=== PATIENT | female | born 2000 | race Caucasian/White ===

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

== ENCOUNTER 2019-04-12 19:05 | Inpatient (IN) | payer MEDICAID ==
[2019-04-12] MEDS ORDERED: MAG HYDROX/AL HYDROX/SIMETH SUSP 30 ML UDCUP PO PRN (19:38)
[2019-04-12] MEDS ORDERED: ACETAMINOPHEN 325 MG TABLET PO PRN (19:38)
[2019-04-12 19:58] LABS: ABSOLUTE EOSINOPHILS # (AUTO) 0.1 10^3/uL (0.0-0.6); ABSOLUTE LYMPHOCYTES (AUTO) 1.6 10^3/uL (0.5-4.7); ABSOLUTE MONOCYTES (AUTO) 0.7 10^3/uL (0.1-1.4); ABSOLUTE NEUT (AUTO) 8.8 10^3/uL (1.7-8.2); BASOPHILS % (AUTO) 0.1 % (0-2); EOSINOPHILS % (AUTO) 0.9 % (0-6); HEMATOCRIT 32.5 % (36.0-47.0); HEMOGLOBIN 11.1 g/dL (12.0-15.5); LYMPHOCYTES % (AUTO) 14.3 % (13-45); MEAN CORPUSCULAR HEMOGLOBIN 29.5 pg (27.0-33.4); MEAN CORPUSCULAR HGB CONC 34.2 g/dL (32.0-36.0); MEAN CORPUSCULAR VOLUME 86 fl (80-97); MONOCYTES % (AUTO) 5.9 % (3-13); PLATELET COUNT 195 10^3/uL (150-450); RED BLOOD COUNT 3.77 10^6/uL (3.72-5.28); SEGMENTED NEUTROPHILS % (AUTO) 78.8 % (42-78); TOTAL CELLS COUNTED % (AUTO) 100 %; WHITE BLOOD COUNT 11.2 10^3/uL (4.0-10.5)
[2019-04-12] MEDS ORDERED: RINGERS SOLUTION,LACTATED 300 ML IV ONE (20:00)
[2019-04-12] MEDS ORDERED: DINOPROSTONE 10 MG VAGINAL INSERT.SR PV ONE (20:00)
[2019-04-12 20:03] LABS: APPEARANCE,URINE SLIGHTLY-CLOUDY; BILIRUBIN,URINE NEGATIVE (NEGATIVE); COLOR,URINE YELLOW; GLUCOSE, URINE NEGATIVE (NEGATIVE); KETONES,URINE NEGATIVE (NEGATIVE); LEUKOCYTE ESTERASE,URINE NEGATIVE (NEGATIVE); NITRITE,URINE NEGATIVE (NEGATIVE); PROTEIN,URINE 30 mg/dL (NEGATIVE); URINE SPECIFIC GRAVITY 1.018
[2019-04-12 20:19] LABS: ALBUMIN 3.5 g/dL (3.5-5.0); ALKALINE PHOSPHATASE 88 U/L (38-126); ANION GAP 8 (5-19); ASPARTATE AMINO TRANSFERASE 19 U/L (14-36); BILIRUBIN,DIRECT 0.1 mg/dL (0.0-0.4); BILIRUBIN,TOTAL 0.3 mg/dL (0.2-1.3); BLOOD UREA NITROGEN 10 mg/dL (7-20); CALCIUM 9.9 mg/dL (8.4-10.2); CARBON DIOXIDE 22 mmol/L (22-30); CHLORIDE 103 mmol/L (98-107); GLUCOSE 92 mg/dL (75-110); TOTAL PROTEIN 6.3 g/dL (6.3-8.2); URIC ACID 4.6 mg/dL (2.5-6.2)
[2019-04-12 20:27] LABS: URINE AMPHETAMINES SCREEN NEGATIVE; URINE BARBITURATES SCREEN NEGATIVE; URINE BENZODIAZEPINES SCREEN NEGATIVE; URINE COCAINE SCREEN NEGATIVE; URINE MARIJUANA (THC) SCREEN NEGATIVE; URINE METHADONE SCREEN NEGATIVE; URINE PHENCYCLIDINE SCREEN NEGATIVE
[2019-04-12] MEDS ORDERED: DINOPROSTONE 10 MG VAGINAL INSERT.SR ONE (21:02)
[2019-04-12] MEDS ORDERED: ZOLPIDEM TARTRATE 5 MG TABLET ONE (22:59)
[2019-04-12] MEDS: RINGERS SOLUTION,LACTATED 1,000 ML IV PRN (23:00)
[2019-04-12] MEDS: ZOLPIDEM TARTRATE 5 MG TABLET PO PRN (23:00)
[2019-04-13] MEDS ORDERED: OXYTOCIN/NORMAL SALINE 20 UNIT/1,000 ML RTUINJ ONE (12:06)
[2019-04-13] MEDS ORDERED: LIDOCAINE 1% INJ-PF (10 MG/ML) 30 ML SDV ONE (12:06)
[2019-04-13] MEDS ORDERED: OXYTOCIN 10 UNIT/ML VIAL ONE (12:06)
[2019-04-13] MEDS ORDERED: MISOPROSTOL 0.2 MG TABLET ONE (12:06)
[2019-04-13] MEDS ORDERED: LIDOCAINE 2% JELLY 5 ML TUBE ONE (12:07)
[2019-04-13] MEDS ORDERED: OXYTOCIN/NORMAL SALINE 20 UNIT/1,000 ML RTUINJ IV PRN (13:04)
[2019-04-13] MEDS: OXYTOCIN/NORMAL SALINE 20 UNIT/1,000 ML RTUINJ IV PRN (13:05)
[2019-04-13] MEDS ORDERED: LIDOCAINE 2% JELLY 5 ML TUBE TOP ONE (13:06)
--- NOTE | 2019-04-13 13:11 | Admission Physical ---
Datetime Report Generated by CPN: 04/13/2019 13:10 CURRENT ADMISSION Chief Complaint: Scheduled Induction of Labor Chief Complaint Other: had cervidil placed last night Indication for Induction: PreEclampsia Indication for Induction- Other: Pre E 24*urine >300 Admit Impression : Term, Intrauterine Admit Plan: Admit to Unit; Initiate Labor Induction Protocol ALLERGIES Medication Allergies: Yes Medication Allergies: Penicillins (04/13/2019) OBSTETRICAL HISTORY EDC: 04/28/2019 00:00 : 2 Para: 0 Term: 0 : 0 SAB: 0 IAB: 1 Ectopic: 0 Livin Cesareans: 0 VBACs: 0 Multiple Births: 0 Gestational Diabetes: No Rh Sensitization: No Incompetent Cervix: No LENA: No Infertility: No ART Treatment: No Uterine Anomaly: No IUGR: No Hx Previous C/S: No Macrosomia: No Hx Loss/Stillborn: No PIH: No Hx : No Placenta Previa/Abruption: No Depression/PP Depression: Yes PTL/PROM: No Post Hemorrhage: No Obstetrical History Comments: G1- EA2017 D_C G2- current SEE RECORDS Alcohol: No Marijuana : No Cocaine: No Other Illicit Drugs: No Cigarettes: Former Smoker. 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 Surgery: No Heart Disease: No Hosp/Surgery: Yes Autoimmune Disorder: No Anesthetic Complications: No Kidney Disease: No Abnormal Pap Smear: No Neuro/Epilepsy: No Psychiatric Disorders: Yes Other Medical Diseases: No Hepatitis/Liver Disease: No Significant Family History: No Varicosities/Phlebitis: No Trauma/Violence : No Thyroid Dysfunction: No Medical History Comments: pre-e 24h urine 334, pt was being seen in 2016 for anxiety and depression-stopped going b/c she was feeling better, D_C - 2017 INFECTIOUS HISTORY Gonorrhea: No Genital Herpes: No Chlamydia: No Tuberculosis: No Syphilis: No Hepatitis: No HIV/AIDS Exposure: No Rash or Viral Illness: No HPV: No Infectious History Comments: pt treated for trich 10/29/18 PHYSICAL EXAM General: Normal HEENT: Deferred Neurologic: Normal Thyroid: Deferred Heart: Normal Lungs: Normal Breast: Deferred Back: Deferred Abdomen: Normal Genitourinary Exam: Normal Extremities: Normal DTRs: Deferred Pelvic Type: Adequate VAGINAL EXAM Dilatation: 1 Effacement: 50 Station: -2 FETUS A EGA: 37.6 Monitoring: External US FHR- Baseline: 140 Variability: Moderate 6-25bpm Accelerations: 15X15 Decelerations: None Admit Comment: GBS neg PLANS FOR LABOR AND DELIVERY Labor and Delivery: None Pain Management: Epidural Feeding Preference: Breast Benefit of Breast Feed Discussed: Yes Circumcision: N/A INFORMED CONSENT Assignment: Samantha Martins MD Signature: with User ID: [email or web address] : with User ID: [email or web address]
[2019-04-13] MEDS ORDERED: MISOPROSTOL 0.1 MG TABLET PV ONE (17:11)
[2019-04-13] MEDS ORDERED: MISOPROSTOL 0.1 MG TABLET PO ONE (17:12)
[2019-04-13] MEDS ORDERED: MISOPROSTOL 0.1 MG TABLET ONE ×2 (17:16→21:46)
[2019-04-13] MEDS ORDERED: ZOLPIDEM TARTRATE 5 MG TABLET ONE (22:56)
[2019-04-13] MEDS: ZOLPIDEM TARTRATE 5 MG TABLET PO PRN (22:59)
[2019-04-14] MEDS ORDERED: MISOPROSTOL 0.1 MG TABLET ONE (01:53)
[2019-04-14 08:02] LABS: ABSOLUTE EOSINOPHILS # (AUTO) 0.1 10^3/uL (0.0-0.6); ABSOLUTE LYMPHOCYTES (AUTO) 1.2 10^3/uL (0.5-4.7); ABSOLUTE MONOCYTES (AUTO) 0.7 10^3/uL (0.1-1.4); ABSOLUTE NEUT (AUTO) 11.1 10^3/uL (1.7-8.2); BASOPHILS % (AUTO) 0.3 % (0-2); EOSINOPHILS % (AUTO) 0.4 % (0-6); HEMOGLOBIN 12.2 g/dL (12.0-15.5); LYMPHOCYTES % (AUTO) 9.1 % (13-45); MEAN CORPUSCULAR HEMOGLOBIN 29.9 pg (27.0-33.4); MEAN CORPUSCULAR HGB CONC 34.9 g/dL (32.0-36.0); MEAN CORPUSCULAR VOLUME 86 fl (80-97); MONOCYTES % (AUTO) 5.4 % (3-13); PLATELET COUNT 187 10^3/uL (150-450); RED BLOOD COUNT 4.09 10^6/uL (3.72-5.28); RED CELL DISTRIBUTION WIDTH 13.3 % (11.5-14.0); SEGMENTED NEUTROPHILS % (AUTO) 84.8 % (42-78); TOTAL CELLS COUNTED % (AUTO) 100 %; WHITE BLOOD COUNT 13.1 10^3/uL (4.0-10.5)
[2019-04-14 08:19] LABS: ALBUMIN 3.5 g/dL (3.5-5.0); ALKALINE PHOSPHATASE 94 U/L (38-126); ANION GAP 10 (5-19); ASPARTATE AMINO TRANSFERASE 19 U/L (14-36); BILIRUBIN,TOTAL 0.6 mg/dL (0.2-1.3); BLOOD UREA NITROGEN 3 mg/dL (7-20); CALCIUM 9.8 mg/dL (8.4-10.2); CARBON DIOXIDE 23 mmol/L (22-30); CHLORIDE 103 mmol/L (98-107); GLUCOSE 81 mg/dL (75-110); POTASSIUM 4.4 mmol/L (3.6-5.0); TOTAL PROTEIN 6.7 g/dL (6.3-8.2); URIC ACID 4.9 mg/dL (2.5-6.2)
[2019-04-14] MEDS: OXYTOCIN/NORMAL SALINE 20 UNIT/1,000 ML RTUINJ IV PRN (08:30)
[2019-04-14] MEDS: RINGERS SOLUTION,LACTATED 1,000 ML IV PRN ×2 (08:30→12:41)
[2019-04-14] MEDS ORDERED: PHENYLEPHRINE HCL INJ/PF 10 MG/1 ML SDV ONE (15:18)
[2019-04-14] MEDS ORDERED: FENTANYL/BUPIVACAINE/NS/PF 300 MCG/150 ML RTUINJ EPI ONE (15:19)
[2019-04-14] MEDS ORDERED: EPHEDRINE SULFATE INJ 50 MG/1 ML AMPULE ONE (15:19)
[2019-04-14] MEDS ORDERED: FENTANYL CITRATE INJ/PF 100 MCG/2 ML AMPUL ONE (15:19)
[2019-04-14] MEDS ORDERED: BUPIVACAINE HCL 0.25 % INJ/PF (2.5 MG/1 ML) 30 ML VIAL ONE (15:20)
[2019-04-14] MEDS ORDERED: OXYTOCIN/NORMAL SALINE 20 UNIT/1,000 ML RTUINJ ONE (22:36)
[2019-04-14] MEDS ORDERED: ONDANSETRON HCL INJ/PF 4 MG/2 ML SDV ONE (23:34)
[2019-04-14] MEDS ORDERED: ONDANSETRON HCL INJ/PF 4 MG/2 ML SDV IV ONE (23:59)
[2019-04-15] MEDS ORDERED: PROMETHAZINE HCL 25 MG TABLET PO PRN
[2019-04-15] MEDS ORDERED: DIPH/PERTUSS(ACELL)/TETANUS VAC/PF 0.5 ML SYR (>=10YO) IM PRN
[2019-04-15] MEDS ORDERED: PSEUDOEPHEDRINE HCL 30 MG TABLET PO PRN
[2019-04-15] MEDS ORDERED: DIPHENHYDRAMINE HCL 25 MG CAPSULE PO PRN
[2019-04-15] MEDS ORDERED: DIBUCAINE 1% OINTMENT 56 GM TP PRN
[2019-04-15] MEDS ORDERED: PROMETHAZINE HCL INJ 25 MG/1 ML VIAL IV PRN
[2019-04-15] MEDS ORDERED: MEASLES,MUMPS&RUBELLA VACC/PF 0.5 ML VIAL SUBCUT PRN
[2019-04-15] MEDS ORDERED: OXYTOCIN/NORMAL SALINE 20 UNIT/1,000 ML RTUINJ IV PRN
[2019-04-15] MEDS ORDERED: BENZOCAINE/MENTHOL AEROSOL SPRAY 56 ML TOP PRN
[2019-04-15] MEDS ORDERED: ACETAMINOPHEN WITH CODEINE #3 TABLET PO PRN ×2
[2019-04-15] MEDS ORDERED: NA PHOS,M-B/NA PHOS,DI-BA (ADULT) 133 ML ENEMA PR PRN
[2019-04-15] MEDS ORDERED: PROMETHAZINE HCL 25 MG SUPP.RECT PR PRN
[2019-04-15] MEDS ORDERED: GLYCERIN/WITCH HAZEL LEAF 1 EACH MED..WIPE TP PRN
[2019-04-15] MEDS ORDERED: ACETAMINOPHEN 650 MG SUPP.RECT PR PRN
[2019-04-15] MEDS ORDERED: MAGNESIUM HYDROXIDE SUSP 30 ML UDCUP PO PRN
[2019-04-15] MEDS ORDERED: ACETAMINOPHEN 325 MG TABLET ONE (00:12)
[2019-04-15] MEDS ORDERED: ACETAMINOPHEN 325 MG TABLET PO ONE (01:00)
--- NOTE | 2019-04-15 01:51 | Delivery Summary ---
Del Sum A-C Datetime Report Generated by CPN: 04/15/2019 01:51 DELIVERY PERSONNEL DELIVERY PERSONNEL: [id number] Delivery Doctor:: Molly Owens MD Labor and Delivery Nurse:: Flora Guthrie RNsolar energy sales specialist Nurse:: Patti Zuñiga, RNC MATERNAL INFORMATION Delivery Anesthesia: Epidural Medications After Delivery: Pitocin Drip 20 Units/1000ml NSS; Cytotec 1000mcg Per Rectum/Vagina Estimated Blood Loss (ml): 300 Delivery QBL: 300 Maternal Complications: Maternal Fever Provider Comments: Called to patients room complete and + 3 station. Delivered with maternal pushing with only small 1 cm right vaginal wall laceration at level of hymen. After delivery of the head, the shoulders and the rest of the body followed easily. Cord clamped after 30 second delay as infant was vigorous. Uterine atony initially resolved with bimanual massage but returned. Cytotec 1000mcg given MO x1. Fundus massaged and remained firm. LABOR SUMMARY EDC: 04/28/2019 00:00 No. Babies in Womb: 1 Attempted: No Labor Anesthesia: Epidural LABOR INFORMATION Reason for Induction: Pre-Eclampsia Onset of Labor: 04/14/2019 20:55 Complete Dilatation: 04/14/2019 22:25 Cervical Ripening Agents: Cervidil; Damian Balloon; Cytotec @ Oxytocin: Augmentation Group B Beta Strep: negative Antibiotics # of Doses: 0 Steroids Given: None Reason Steroids Not Administered: Not Applicable MEMBRANES Membranes Rupture Method: Artificial Rupture of Membranes: 04/14/2019 14:37 Length of Rupture (hr): 8.30 Amniotic Fluid Color: Clear Amniotic Fluid Amount: Moderate Amniotic Fluid Odor: Normal STAGES OF LABOR Stage 1 hr: 1 Stage 1 min: 30 Stage 2 hr: 0 Stage 2 min: 30 Stage 3 hr: 0 Stage 3 min: 3 Total Time in Labor hr: 2 Total Time in Labor min: 3 VAGINAL DELIVERY Episiotomy: None Laceration #1: Vaginal Laceration Extension #1: First Degree Laceration Repair: Yes Laceration Repair Note: Small first degree laceration at right side wall of vagina through hymen. Repaired with 3-0 vicryl on SH . Approx 1 cm length. Hemostatic following repair. Sponge Count Correct: Yes Sharps Count Correct: Yes CSECTION DELIVERY Primary Indication: N/A Secondary Indication: N/A CSection Incidence: N/A Labor: N/A Elective: N/A CSection Incision: N/A BABY A INFORMATION Infant Delivery Date/Time: 04/14/2019 22:55 Method of Delivery: Vaginal Born in Route : No : N/A Forceps: N/A Vacuum Extraction: N/A Shoulder Dystocia : No PRESENTATION/POSITION BABY A Presentation: Cephalic Cephalic Presentation: Vertex Vertex Position: Right Occipital Anterior Breech Presentation: N/A PLACENTA INFORMATION BABY A Placenta Delivery Time : 04/14/2019 22:58 Placenta Method of Delivery: Spontaneous Placenta Status: Delivered SCORES BABY A Heart Rate 1 min: >100 bpm Resp Effort 1 min: Good Cry Reflex Irritability 1 min: Cough or Sneeze or Pulls Away Muscle Tone 1 min: Active Motion Color 1 min: Body [place], Extremities Blue Resuscitation Effort 1 min: Tactile Stimulation SCORE 1 MIN: 9 Heart Rate 5 min: >100 bpm Resp Effort 5 min: Good Cry Reflex Irritability 5 min: Cough or Sneeze or Pulls Away Muscle Tone 5 min: Active Motion Color 5 min: Body [place], Extremities Blue SCORE 5 MIN: 9 INFANT INFORMATION BABY A Gestational Age at Delivery: 37.5 Gestational Status: Early Term- 37- 38.6 Weeks Infant Outcome : Liveborn Infant Condition : Stable Sex: Female IDENTIFICATION BABY A Infant Verification Date/Time: 04/14/2019 23:31 ID Band Number: [id number] Mother's Name Verified: Yes RN Verifying Infant: D Bellavance RN/K [place] RN WEIGHT/LENGTH BABY A Birthweight (gm): 3212 Weight (lb): 7 Weight (oz): 1 Infant Length (in): 19.75 Infant Length (cm): 50.17 CORD INFORMATION BABY A No. Cord Vessels: 3 Nuchal Cord : N/A Cord Blood Taken: Yes-For Storage (Mom's Blood type +) Suction: None ASSESSMENT BABY A Infant Complications: None Physical Findings at Delivery: Within Normal Limits Infant Respirations: Appears Normal Skin to Skin: Yes Skin to Skin Time (min): 60 Transferred To: [facility] BABY B INFORMATION : N/A SIGNATURES Signature: with User ID: [email or web address] : with User ID: [email or web address] : I was personally available for consultation and serving as supervising physician for the MLP.
--- NOTE | 2019-04-15 01:56 | Warning Signs in Babies ---
VOD Warning Signs Datetime Report Generated by [facility]: 04/15/2019 01:56 VOD#608 -Warning Signs in Babies: Viewed with Parent(s)/Family (04/12/2019 17:05:Flora Guthrie RN)
[2019-04-15] MEDS ORDERED: IBUPROFEN 800 MG TABLET ONE (05:47)
[2019-04-15] MEDS: IBUPROFEN 800 MG TABLET PO SCH ×3 (05:52→22:01)
--- NOTE | 2019-04-15 08:46 | PDOC PROGRESS REPORT ---
Subjective-OB Progress Note for:: 04/15/19 - PP Day #1, pt is up out of bed, just took a shower, doing well, no complaints, , B+ Physical Exam (OB) Vital Signs: Intake & Output 04/14/19 04/15/19 04/16/19 06:59 06:59 06:59 Intake Total 1000 640 Balance 1000 640 Weight 107.955 kg - General General Appearance: Appears well, Alert In distress: None - Lochia Lochia Amount: Small 10-25 ml Lochia Color: Rubra/Red - Respiratory Respiratory Status: No respiratory distress - Abdominal Inspection: Normal, Gravid female Distension: No distension - Genitourinary Genitourinary Note: voiding - Extremities Upper extremity: Normal inspection Lower extremities: Normal inspection - Neurological Cognition: Normal Orientation: AAOx4 - Psychological Associated symptoms: Normal affect, Normal mood - Skin Skin Temperature: Warm Skin Moisture: Dry Objective-Diagnostic Laboratory: 04/14/19 07:33 04/14/19 07:33 Assessment and Plan(PN) - Assessment and Plan (1) (normal spontaneous vaginal delivery) Is this a current diagnosis for this admission?: Yes - Time Spent with Patient Time with patient: Less than 15 minutes Medications reviewed and adjusted accordingly: Yes - Disposition Anticipated Discharge: Home Within: within 24 hours
[2019-04-15] MEDS: SENNOSIDES/DOCUSATE 8.6-50 MG 1 EACH TABLET PO SCH (09:21)
[2019-04-15] MEDS: FERROUS SULFATE 325 MG TABLET PO SCH ×2 (09:21→17:40)
[2019-04-15] MEDS: PRENATAL VITAMIN W DHA CAPSULE PO SCH (09:21)
[2019-04-15] MEDS: DOCUSATE SODIUM 100 MG CAPSULE PO SCH ×2 (09:21→17:40)
[2019-04-15] MEDS: FAMOTIDINE 20 MG TABLET PO SCH ×2 (10:27→22:01)
[2019-04-15 11:26] LABS: HEMATOCRIT 27.8 % (36.0-47.0); MEAN CORPUSCULAR HEMOGLOBIN 29.9 pg (27.0-33.4); MEAN CORPUSCULAR HGB CONC 34.8 g/dL (32.0-36.0); MEAN CORPUSCULAR VOLUME 86 fl (80-97); PLATELET COUNT 145 10^3/uL (150-450); RED BLOOD COUNT 3.23 10^6/uL (3.72-5.28); RED CELL DISTRIBUTION WIDTH 13.1 % (11.5-14.0); WHITE BLOOD COUNT 14.4 10^3/uL (4.0-10.5)
[2019-04-15 11:27] LABS: HEMOGLOBIN 9.7 g/dL (12.0-15.5)
[2019-04-16] MEDS: IBUPROFEN 800 MG TABLET PO SCH ×2 (05:34→13:27)
[2019-04-16] MEDS ORDERED: INFLUENZA QUAD (6MOS+) 2019-20 VAC 0.5 ML SYR IM ONE (08:00)
[2019-04-16] MEDS: FAMOTIDINE 20 MG TABLET PO SCH (10:33)
[2019-04-16] MEDS: FERROUS SULFATE 325 MG TABLET PO SCH (10:33)
[2019-04-16] MEDS: PRENATAL VITAMIN W DHA CAPSULE PO SCH (10:33)
[2019-04-16] MEDS: DOCUSATE SODIUM 100 MG CAPSULE PO SCH (10:34)
[2019-04-16] MEDS: SENNOSIDES/DOCUSATE 8.6-50 MG 1 EACH TABLET PO SCH (10:34)
--- NOTE | 2019-04-16 11:33 | PDOC PROGRESS REPORT ---
Subjective-OB Progress Note for:: 04/16/19 Subjective: Ready for discharge. Physical Exam (OB) Vital Signs: Temp Pulse Resp BP Pulse Ox 97.8 F 58 L 16 137/82 H 100 04/16/19 07:26 04/16/19 07:26 04/16/19 07:26 04/16/19 07:26 04/16/19 07:26 Intake & Output 04/15/19 04/16/19 04/17/19 06:59 06:59 06:59 Intake Total 640 1940 Balance 640 1940 - PIH/Pre-Eclampsia DTR's: 2 + Clonus: Negative Headache: Absent Epigastric Pain: No Visual Changes: No - Lochia Lochia Amount: Scant < 10 ml Lochia Color: Rubra/Red - Abdomen Description: Tender, Soft Hernia Present: No Bowel Sounds: Normoactive Flatus Presence: Present Stool: Yes Fundal Description: Firm, Midline Fundal Height: u/u - u/2 Objective-Diagnostic Laboratory: 04/15/19 10:40 04/14/19 07:33 Assessment and Plan(PN) - Time Spent with Patient Medications reviewed and adjusted accordingly: Yes - Disposition Anticipated Discharge: Home
--- NOTE | 2019-04-16 11:39 | PDOC DISCHARGE SUMMARY ---
Impression - Admit/DC Date/PCP Admission Date/Primary Care Provider: 04/12/19 19:05 KEVEN GALVEZ MD Discharge Date: 04/16/19 - Discharge Diagnosis (1) Acute blood loss anemia Is this a current diagnosis for this admission?: Yes (2) History of depression Is this a current diagnosis for this admission?: Yes (3) (normal spontaneous vaginal delivery) Is this a current diagnosis for this admission?: Yes (4) Is this a current diagnosis for this admission?: Yes - Additional Information Resuscitation Status: Full Code Discharge Diet: Regular Discharge Activity: Activity As Tolerated, Balance Activity w/Rest, Pelvic Rest, Slowly Increase Activity, No tub bath Referrals: KEVEN GALVEZ MD [Primary Care Provider] - YORDAN RODRIGUEZ MD [ACTIVE STAFF] - Prescriptions: Ferrous Sulfate [Feosol 325 mg Tablet] 325 mg PO BID #60 tablet Home Medications: Vits96/Iron Fum/Folic [ Tablet] 1 each PO DAILY 04/13/19 Ferrous Sulfate [Feosol 325 mg Tablet] 325 mg PO BID #60 tablet 04/16/19 HPI Gestational Age: 37.5 wks Reason(s) for Admission: Induction of Labor, PIH Procedures: Ultrasound Intrapartum Procedure(s): Spontaneous Vaginal Delivery Complication(s): Laceration-Vaginal Laceration-Degree: 1st Results Laboratory Results: WBC 14.4 10^3/uL (4.0-10.5) H 04/15/19 10:40 RBC 3.23 10^6/uL (3.72-5.28) L 04/15/19 10:40 Hgb 9.7 g/dL (12.0-15.5) L D 04/15/19 10:40 Hct 27.8 % (36.0-47.0) L 04/15/19 10:40 MCV 86 fl (80-97) 04/15/19 10:40 MCH 29.9 pg (27.0-33.4) 04/15/19 10:40 MCHC 34.8 g/dL (32.0-36.0) 04/15/19 10:40 RDW 13.1 % (11.5-14.0) 04/15/19 10:40 Plt Count 145 10^3/uL (150-450) L 04/15/19 10:40 Lymph % (Auto) 9.1 % (13-45) L 04/14/19 07:33 [place] % (Auto) 5.4 % (3-13) 04/14/19 07:33 Eos % (Auto) 0.4 % (0-6) 04/14/19 07:33 Baso % (Auto) 0.3 % (0-2) 04/14/19 07:33 Absolute Neuts (auto) 11.1 10^3/uL (1.7-8.2) H 04/14/19 07:33 Absolute Lymphs (auto) 1.2 10^3/uL (0.5-4.7) 04/14/19 07:33 Absolute Monos (auto) 0.7 10^3/uL (0.1-1.4) 04/14/19 07:33 Absolute Eos (auto) 0.1 10^3/uL (0.0-0.6) 04/14/19 07:33 Absolute Basos (auto) 0.0 10^3/uL (0.0-0.2) 04/14/19 07:33 Seg Neutrophils % 84.8 % (42-78) H 04/14/19 07:33 Sodium 135.6 mmol/L (137-145) L 04/14/19 07:33 Potassium 4.4 mmol/L (3.6-5.0) 04/14/19 07:33 Chloride 103 mmol/L (98-107) 04/14/19 07:33 Carbon Dioxide 23 mmol/L (22-30) 04/14/19 07:33 Anion Gap 10 (5-19) 04/14/19 07:33 BUN 3 mg/dL (7-20) L 04/14/19 07:33 Creatinine 0.48 mg/dL (0.52-1.25) L 04/14/19 07:33 Est GFR ( Amer) > 60 (>60) 04/14/19 07:33 Est GFR (MDRD) Non-Af > 60 (>60) 04/14/19 07:33 Glucose 81 mg/dL (75-110) 04/14/19 07:33 Uric Acid 4.9 mg/dL (2.5-6.2) 04/14/19 07:33 Calcium 9.8 mg/dL (8.4-10.2) 04/14/19 07:33 Total Bilirubin 0.6 mg/dL (0.2-1.3) 04/14/19 07:33 Direct Bilirubin 0.0 mg/dL (0.0-0.4) 04/14/19 07:33 Neonat Total Bilirubin Not Reportable 04/14/19 07:33 Neonat Direct Bilirubin Not Reportable 04/14/19 07:33 Neonat Indirect Bili Not Reportable 04/14/19 07:33 AST 19 U/L (14-36) 04/14/19 07:33 ALT 11 U/L (<35) 04/14/19 07:33 Alkaline Phosphatase 94 U/L (38-126) 04/14/19 07:33 Lactate Dehydrogenase 179 U/L (120-246) 04/14/19 07:33 Total Protein 6.7 g/dL (6.3-8.2) 04/14/19 07:33 Albumin 3.5 g/dL (3.5-5.0) 04/14/19 07:33 Urine Color YELLOW 04/12/19 19:30 Urine Appearance SLIGHTLY-CLOUDY 04/12/19 19:30 Urine pH 6.0 (5.0-9.0) 04/12/19 19:30 Ur Specific [place] 1.018 04/12/19 19:30 Urine Protein 30 mg/dL (NEGATIVE) H 04/12/19 19:30 Urine Glucose (UA) NEGATIVE mg/dL (NEGATIVE) 04/12/19 19:30 Urine Ketones NEGATIVE mg/dL (NEGATIVE) 04/12/19 19:30 Urine Blood NEGATIVE (NEGATIVE) 04/12/19 19:30 Urine Nitrite NEGATIVE (NEGATIVE) 04/12/19 19:30 Urine Bilirubin NEGATIVE (NEGATIVE) 04/12/19 19:30 Urine Urobilinogen 2.0 mg/dL (<2.0) H 04/12/19 19:30 Ur Leukocyte Esterase NEGATIVE (NEGATIVE) 04/12/19 19:30 Urine Ascorbic Acid NEGATIVE (NEGATIVE) 04/12/19 19:30 Urine Opiates Screen NEGATIVE 04/12/19 19:30 Urine Methadone Screen NEGATIVE 04/12/19 19:30 Ur Barbiturates Screen NEGATIVE 04/12/19 19:30 Ur Phencyclidine Scrn NEGATIVE 04/12/19 19:30 Ur Amphetamines Screen NEGATIVE 04/12/19 19:30 U Benzodiazepines Scrn NEGATIVE 04/12/19 19:30 Urine Cocaine Screen NEGATIVE 04/12/19 19:30 U Marijuana (THC) Screen NEGATIVE 04/12/19 19:30 RPR NONREACTIVE (NONREACTIVE) 04/12/19 19:48 Blood Type B POSITIVE 04/12/19 19:48 Antibody Screen NEGATIVE 04/12/19 19:48 Plan Plan of Treatment: Follow up at [facility] 1 wk for b/p check.
[2019-04-16 12:15] VITALS: BP 139/81
== END 2019-04-16 13:30 | disposition home or self-care (01) | DRG 806 ==
LOC: LR 19:05 → 2S 04-15 08:55
PROVIDERS: ADMIT Obstetrics & Gynecology Gynecology; ATTEND Obstetrics & Gynecology Gynecology
PROC: 10E0XZZ Delivery of Products of Conception, External Approach (ICD-10-PCS; principal; 2019-04-14)
PROC: 0HQ9XZZ Repair Perineum Skin, External Approach (ICD-10-PCS; 2019-04-14)
DX: O14.94 Unspecified pre-eclampsia, complicating childbirth (principal); O75.2 Pyrexia during labor, not elsewhere classified; Z37.0 Single live birth; O62.2 Other uterine inertia; O70.0 First degree perineal laceration during delivery; Z3A.37 37 weeks gestation of pregnancy
CPT/HCPCS: 36415; 80053; 80307; 81005; 83615; 84550; 85025; 85027; 86592; 86850; 86900; 86901; 90715; C1758; J2370; J2405; J2590; J3010; J3490

== ENCOUNTER 2019-04-19 12:10 | Inpatient (IN) | payer MEDICAID ==
--- NOTE | 2019-04-19 12:20 | ER Document Report ---
ED Medical Screen (RME) - General Chief Complaint: High Blood Pressure Stated Complaint: HIGH BLOOD PRESSURE Time Seen by Provider: 04/19/19 12:14 Primary Care Provider: KEVEN GALVEZ MD [Primary Care Provider] - Follow up as needed Mode of Arrival: Ambulatory Information source: Patient Notes: Patient presents 4 days status post induction due to preeclampsia. Patient states that her headache started yesterday and worsened today. Patient is hypertensive in triage at this time. Patient did have an epidural with her delivery. I have greeted and performed a rapid initial assessment of this patient. A comprehensive ED assessment and evaluation of the patient, analysis of test results and completion of the medical decision making process will be conducted by additional ED providers. TRAVEL OUTSIDE OF THE [place] IN LAST 30 DAYS: No - Related Data Allergies/Adverse Reactions: Penicillins Allergy (Verified 04/19/19 12:14) Past Medical History - Social History Chew tobacco use (# tins/day): No Frequency of alcohol use: None Drug Abuse: None Renal/ Medical History: Denies: Hx Peritoneal Dialysis Physical Exam - Vital signs Vitals: Temp Pulse Resp BP Pulse Ox 97.6 F 68 18 166/98 H 98 04/19/19 12:17 04/19/19 12:17 04/19/19 12:17 04/19/19 12:17 04/19/19 12:17 - Neurological Cognition: Normal Welch Coma Scale Eye Opening: Spontaneous Welch Coma Scale Verbal: Oriented Briana Coma Scale Motor: Obeys Commands Welch Coma Scale Total: 15 Course - Vital Signs Vital signs: Temp Pulse Resp BP Pulse Ox 97.6 F 68 18 166/98 H 98 04/19/19 12:17 04/19/19 12:17 04/19/19 12:17 04/19/19 12:17 04/19/19 12:17 Doctor's Discharge - Discharge Referrals: KEVEN GALVEZ MD [Primary Care Provider] - Follow up as needed
[2019-04-19] MEDS ORDERED: ACETAMINOPHEN 325 MG TABLET PO ONE (12:27)
[2019-04-19] MEDS ORDERED: MAGNESIUM SULFATE PF/INJ 40 MEQ/10 ML SDV IV ONE (12:34)
[2019-04-19] MEDS ORDERED: ACETAMINOPHEN 325 MG TABLET PO PRN (12:47)
[2019-04-19] MEDS ORDERED: ZOLPIDEM TARTRATE 5 MG TABLET PO PRN (12:47)
[2019-04-19 12:48] LABS: ABSOLUTE BASOPHILS # (AUTO) 0.1 10^3/uL (0.0-0.2); ABSOLUTE EOSINOPHILS # (AUTO) 0.4 10^3/uL (0.0-0.6); ABSOLUTE LYMPHOCYTES (AUTO) 1.5 10^3/uL (0.5-4.7); ABSOLUTE MONOCYTES (AUTO) 0.5 10^3/uL (0.1-1.4); BASOPHILS % (AUTO) 0.8 % (0-2); EOSINOPHILS % (AUTO) 4.6 % (0-6); HEMATOCRIT 32.8 % (36.0-47.0); HEMOGLOBIN 11.3 g/dL (12.0-15.5); LYMPHOCYTES % (AUTO) 17.9 % (13-45); MEAN CORPUSCULAR HEMOGLOBIN 29.6 pg (27.0-33.4); MEAN CORPUSCULAR HGB CONC 34.5 g/dL (32.0-36.0); MEAN CORPUSCULAR VOLUME 86 fl (80-97); MONOCYTES % (AUTO) 5.7 % (3-13); PLATELET COUNT 292 10^3/uL (150-450); RED BLOOD COUNT 3.81 10^6/uL (3.72-5.28); RED CELL DISTRIBUTION WIDTH 13.2 % (11.5-14.0); TOTAL CELLS COUNTED % (AUTO) 100 %; WHITE BLOOD COUNT 8.4 10^3/uL (4.0-10.5)
[2019-04-19 12:52] LABS: INTERNATIONAL RATION (INR) 0.91; PROTHROMBIN TIME 12.2 SEC (11.4-15.4)
[2019-04-19 12:53] LABS: FIBRINOGEN 557 mg/dL (209-497); PARTIAL THROMBOPLASTIN TIME 31.4 SEC (23.5-35.8)
[2019-04-19 12:55] LABS: D-DIMER 1.91 ug/mL (0.00-0.50)
[2019-04-19] MEDS ORDERED: MAGNESIUM SULFATE/D5W 1 GM/100 ML RTUPB IV SCH (13:00)
[2019-04-19 13:03] LABS: ALBUMIN 3.8 g/dL (3.5-5.0); ALKALINE PHOSPHATASE 87 U/L (38-126); ANION GAP 10 (5-19); ASPARTATE AMINO TRANSFERASE 24 U/L (14-36); BILIRUBIN,DIRECT 0.2 mg/dL (0.0-0.4); BILIRUBIN,TOTAL 0.3 mg/dL (0.2-1.3); BLOOD UREA NITROGEN 7 mg/dL (7-20); CALCIUM 9.8 mg/dL (8.4-10.2); CARBON DIOXIDE 25 mmol/L (22-30); CHLORIDE 102 mmol/L (98-107); GLUCOSE 84 mg/dL (75-110); TOTAL PROTEIN 6.9 g/dL (6.3-8.2)
--- NOTE | 2019-04-19 13:05 | ER Document Report ---
ED General - General Chief Complaint: High Blood Pressure Stated Complaint: HIGH BLOOD PRESSURE Time Seen by Provider: 04/19/19 12:14 Primary Care Provider: KEVEN GALVEZ MD [Primary Care Provider] - Follow up as needed Mode of Arrival: Ambulatory Notes: 18-year-old female who was induced for vaginal delivery approximately 4 days ago due to preeclampsia. Patient states that she was feeling better until her headache returned yesterday and she started feeling worse yesterday and is even worse today. States that the headache is at the back of her head and radiates around to the left side of her face, causes some blurry vision and is a pounding throbbing type of pain. Patient also admits that she had an epidural, headache does not change with change in position. Patient had worsening swelling towards the end of her , states that it improved yesterday but she has not looked today. Notes that she had a fever but has not had one since being discharged from the hospital. Was not discharged from the hospital on any medications. Patient is breast-feeding. TRAVEL OUTSIDE OF THE [place] IN LAST 30 DAYS: No - Related Data Allergies/Adverse Reactions: Penicillins Allergy (Verified 04/19/19 12:14) Past Medical History - General Information source: Patient - Social History Smoking Status: Never Smoker Chew tobacco use (# tins/day): No Frequency of alcohol use: None Drug Abuse: None Family History: Reviewed & Not Pertinent Patient has suicidal ideation: No Patient has homicidal ideation: No Renal/ Medical History: Denies: Hx Peritoneal Dialysis Review of Systems - Review of Systems Constitutional: See HPI EENT: See HPI, Blurred vision Cardiovascular: See HPI, Edema Musculoskeletal: See HPI, Leg swelling Neurological/Psychological: See HPI -: Yes All other systems reviewed and negative Physical Exam - Vital signs Vitals: Temp Pulse Resp BP Pulse Ox 97.6 F 68 18 166/98 H 98 04/19/19 12:17 04/19/19 12:17 04/19/19 12:17 04/19/19 12:17 04/19/19 12:17 Interpretation: Hypertensive - Notes Notes: GENERAL: Laying in bed, eyes covered with a piece of fabric, appears photophobic, moderately uncomfortable HEAD: Normocephalic, atraumatic EYES: Pupils equal, round and reactive to light, extraocular movements intact. Normal red reflex ENT: Oral mucosa moist, tongue midline. NECK: Full range of motion, supple, trachea midline. LUNGS: Clear to auscultation bilaterally, no wheezes, rales or rhonchi, no respiratory distress. HEART: Regular rate and rhythm, no murmurs, gallops, rubs. ABDOMEN: Soft, nontender, bowel sounds present in all 4 quadrants. EXTREMITIES: Moves all 4 extremities spontaneously, 1+ pitting edema at the ankle, radial and dorsalis pedis pulses 2/4 bilaterally. No cyanosis. NEUROLOGICAL: Alert and oriented x3, normal speech, cranial nerves II through XII grossly intact, no facial droop, biceps and patellar DTRs 3+ bilaterally- slight clonus, nonsustained. PSYCH: Normal mood, normal affect. SKIN: Warm, Dry, normal turgor, no rashes or lesions noted. Course - Re-evaluation Re-evalutation: 04/19/19 13:47 Preeclampsia labs ordered, I did initially order magnesium for this patient however I then discussed the case with Dr. Aleena Hernandez who stated that they typically start treatment with other medications to control headache and blood pressure before starting magnesium. Dr. Hernandez has graciously agreed to accept the patient to for further work-up and management of this patient's headache and further investigate the possibility of preeclampsia. - Vital Signs Vital signs: Temp Pulse Resp BP Pulse Ox 97.6 F 68 18 166/98 H 98 04/19/19 12:17 04/19/19 12:17 04/19/19 12:17 04/19/19 12:17 04/19/19 12:17 - Laboratory Result Diagrams: 04/19/19 12:30 04/19/19 12:30 Laboratory results interpreted by me: 04/19/19 04/19/19 12:30 12:30 Hgb 11.3 L Hct 32.8 L Fibrinogen 557 H D-Dimer 1.91 H Discharge - Discharge Clinical Impression: headache, hypertension Condition: Good Disposition: ADMITTED INPATIENT Admitting Provider: [facility] Unit Admitted: Post Referrals: KEVEN GALVEZ MD [Primary Care Provider] - Follow up as needed
[2019-04-19] MEDS: RINGERS SOLUTION,LACTATED 1,000 ML IV PRN (13:27)
[2019-04-19] MEDS ORDERED: BUTALB/ACETAMINOPHEN/CAFFEINE 1 TAB EACH PO ONE ×2 (14:28→22:22)
[2019-04-19] MEDS ORDERED: HYDRALAZINE HCL INJ/PF 20 MG/1 ML SDV IV ONE (14:34)
[2019-04-19] MEDS ORDERED: MAGNESIUM SULFATE 4 GM/100 ML RTUPB IV ONE (14:45)
[2019-04-19] MEDS ORDERED: BUTALB/ACETAMINOPHEN/CAFFEINE 1 TAB EACH ONE ×2 (15:31→22:24)
[2019-04-19] MEDS: MAGNESIUM SULFATE 20 GM/500 ML RTUINJ IV PRN (15:37)
[2019-04-20] MEDS ORDERED: MAGNESIUM SULFATE 20 GM/500 ML RTUINJ IV ONE (02:14)
[2019-04-20] MEDS: MAGNESIUM SULFATE 20 GM/500 ML RTUINJ IV PRN (02:28)
[2019-04-20] MEDS: RINGERS SOLUTION,LACTATED 1,000 ML IV PRN (02:28)
[2019-04-20] MEDS ORDERED: INFLUENZA QUAD (6MOS+) 2019-20 VAC 0.5 ML SYR IM ONE (08:00)
--- NOTE | 2019-04-20 08:49 | Admission Physical ---
Datetime Report Generated by CPN: 04/20/2019 08:49 CURRENT ADMISSION Chief Complaint: Other Chief Complaint: Scheduled Induction of Labor Chief Complaint Other: POssible PP PreE Chief Complaint Other: had cervidil placed last night Indication for Induction: PreEclampsia Indication for Induction- Other: Pre E 24*urine >300 Admit Impression : Term, Intrauterine Admit Plan: Admit to Unit; Initiate Labor Induction Protocol ALLERGIES Medication Allergies: Yes Medication Allergies: Penicillins (04/13/2019) Medication Allergies: Penicillins (09/30/2017) OBSTETRICAL HISTORY EDC: 04/28/2019 00:00 : 2 Para: 0 Term: 0 : 0 SAB: 0 IAB: 1 Ectopic: 0 Livin Cesareans: 0 VBACs: 0 Multiple Births: 0 Gestational Diabetes: No Rh Sensitization: No Incompetent Cervix: No LENA: No Infertility: No ART Treatment: No Uterine Anomaly: No IUGR: No Hx Previous C/S: No Macrosomia: No Hx Loss/Stillborn: No PIH: No Hx : No Placenta Previa/Abruption: No Depression/PP Depression: Yes PTL/PROM: No Post Hemorrhage: No Obstetrical History Comments: G1- EA2017 D_C G2- current SEE RECORDS Alcohol: No Marijuana : No Cocaine: No Other Illicit Drugs: No Cigarettes: Former Smoker. [id number] MEDICAL HISTORY Diabetes: No Blood Transfusion: No Pulmonary Disease (Asthma, TB): No Breast Disease: No Hypertension: Yes [employer] Surgery: No Heart Disease: No Hosp/Surgery: Yes Autoimmune Disorder: No Anesthetic Complications: No Kidney Disease: No Abnormal Pap Smear: No Neuro/Epilepsy: No Psychiatric Disorders: Yes Other Medical Diseases: No Hepatitis/Liver Disease: No Significant Family History: No Varicosities/Phlebitis: No Trauma/Violence : No Thyroid Dysfunction: No Medical History Comments: pre-e 24h urine 334, pt was being seen in 2016 for anxiety and depression-stopped going b/c she was feeling better, D_C - 2017 INFECTIOUS HISTORY Gonorrhea: No Genital Herpes: No Chlamydia: No Tuberculosis: No Syphilis: No Hepatitis: No HIV/AIDS Exposure: No Rash or Viral Illness: No HPV: No Infectious History Comments: pt treated for trich 10/29/18 PHYSICAL EXAM General: Normal General: Normal HEENT: Normal HEENT: Deferred Neurologic: Normal Neurologic: Normal Thyroid: Deferred Thyroid: Deferred Heart: Normal Heart: Normal Lungs: Normal Lungs: Normal Breast: Deferred Breast: Deferred Back: Normal Back: Deferred Abdomen: Normal Abdomen: Normal Genitourinary Exam: Normal Genitourinary Exam: Normal Extremities: Normal Extremities: Normal DTRs: Normal DTRs: Deferred Pelvic Type: Adequate Pelvic Type: Adequate Vital Signs: Reviewed VAGINAL EXAM Dilatation: 1 Dilatation: 2 Effacement: 50 Effacement: 50 Station: -2 MEMBRANES Membranes: Ruptured Amniotic Fluid Color: Clear FETUS A EGA: 38.5 EGA: 37.6 Monitoring: External US FHR- Baseline: 140 Variability: Moderate 6-25bpm Accelerations: 15X15 Decelerations: None Admit Comment: 18yo admitted for IOL on 04/12 for cervidil IOL due to PreE at 38wks (24 hr UTP was 334mg) and delivered on 04/14 late at approx 2300. She was not on magnesium during labor or pp. She was discharge on 04/16 in am and no BP meds were given as BPs were normal at that time. Pt reports that she began having a GUEVARA yesterday that is right sided and worse with sitting up or standing that became worse today. Tylenol only given in ER. WIll give Fioricet (has caffeine in it which can help if Post dural puncture GEUVARA). Will have anesthesia eval as well. Pt only had 2 BPs in ER that I can find (one in system and post closing specialist reported 158/97 prior to bringing patient up to labor and delivery). After transfer to the labor and delivery bed from ER bed BP 182/95. BP meds ordered. Plan of care reviewed with family. Will order mag since she is admitted now for seizure precautions. Patient will be on mag for 12 to 24 hours depending on diuresis. Labs are normal. THen will need to be discharged on BP meds and potentially lasix. Admit Comment: GBS neg PLANS FOR LABOR AND DELIVERY Labor and Delivery: None Pain Management: Epidural Feeding Preference: Breast Benefit of Breast Feed Discussed: Yes Circumcision: N/A INFORMED CONSENT Informed Consent Obtained: Risks, Benefits and Alternatives Discussed Assignment: Samantha Martins MD Signature: with User ID: Celine Signature: with User ID: Harini : with User ID: Celine : with User ID: Harini
[2019-04-20] MEDS: NIFEDIPINE 30 MG TAB.ER.24 PO SCH (20:16)
[2019-04-20] MEDS: DOCUSATE SODIUM 100 MG CAPSULE PO SCH (20:16)
[2019-04-21] MEDS ORDERED: HYDRALAZINE HCL INJ/PF 20 MG/1 ML SDV IV ONE (01:45)
--- NOTE | 2019-04-21 08:54 | PDOC PROGRESS REPORT ---
Subjective Progress Note for:: 04/21/19 Subjective:: Pt states that she feels good and would like to go home today. She states that she had a light headache this morning which resolved. She denies vision changes. Her lochia is decreasing. She is ambulating and voiding without difficulty. Reason For Visit: PRE ECLAMPSIA Physical Exam - Physical Exam Vital Signs: Temp Pulse Resp BP Pulse Ox 98.2 F 101 H 16 139/93 H 100 04/21/19 07:00 04/21/19 07:00 04/21/19 07:00 04/21/19 07:00 04/21/19 07:00 Intake & Output 04/20/19 04/21/19 04/22/19 06:59 06:59 06:59 Intake Total 1476 1500 Output Total 3600 500 Balance 1476 -2100 -500 Weight 99.6 kg 98 kg General appearance: PRESENT: no acute distress Respiratory exam: PRESENT: clear to auscultation teresa Cardiovascular exam: PRESENT: RRR GI/Abdominal exam: PRESENT: normal bowel sounds, soft Extremities exam: ABSENT: calf tenderness, clubbing, full ROM, joint swelling, pedal edema, tenderness, +1 edema, +2 edema, other Result Laboratory Results: 04/19/19 12:30 04/19/19 12:30 Assessment & Plan - Diagnosis (1) headache Is this a current diagnosis for this admission?: Yes (2) hypertension Is this a current diagnosis for this admission?: Yes (3) Preeclampsia in period Is this a current diagnosis for this admission?: Yes - Time Time Spent with patient: 15-24 minutes Medications reviewed and adjusted accordingly: Yes Anticipated discharge: Home Within: within 24 hours - Inpatient Certification Based on my medical assessment, after consideration of the patient's comorbidities, presenting symptoms, or acuity I expect that the services needed warrant INPATIENT care.: Yes I certify that my determination is in accordance with my understanding of Medicare's requirements for reasonable and necessary INPATIENT services [42 CFR 412.3e].: Yes Medical Necessity: Risk of Complication if Not Cared For in Hospital - Plan Summary Plan Summary: 1. Continue pp care 2. Anticipate discharge later today 3. Instructed pt to ambulate to see if BP remains regulated with current Procardia dose
[2019-04-21] MEDS ORDERED: FUROSEMIDE 20 MG TABLET PO SCH (10:00)
[2019-04-21] MEDS: DOCUSATE SODIUM 100 MG CAPSULE PO SCH ×2 (10:57→18:42)
[2019-04-21] MEDS: NIFEDIPINE 30 MG TAB.ER.24 PO SCH (10:59)
--- NOTE | 2019-04-21 14:16 | PDOC PROGRESS REPORT ---
Subjective Progress Note for:: 04/21/19 Subjective:: Pt states that she feels good and would like to go home today. She states that she had a light headache this morning which resolved. She denies vision changes. Her lochia is decreasing. She is ambulating and voiding without difficulty. Reason For Visit: PRE ECLAMPSIA Physical Exam - Physical Exam Vital Signs: Temp Pulse Resp BP Pulse Ox 98.2 F 101 H 18 150/96 H 100 04/21/19 11:06 04/21/19 13:21 04/21/19 11:06 04/21/19 13:21 04/21/19 11:06 Intake & Output 04/20/19 04/21/19 04/22/19 06:59 06:59 06:59 Intake Total 1476 1500 Output Total 3600 700 Balance 1476 -2100 -700 Weight 99.6 kg 98 kg Result Laboratory Results: 04/19/19 12:30 04/19/19 12:30 Assessment & Plan - Diagnosis (1) headache Is this a current diagnosis for this admission?: Yes (2) hypertension Is this a current diagnosis for this admission?: Yes (3) Preeclampsia in period Is this a current diagnosis for this admission?: Yes - Time Time Spent with patient: 15-24 minutes - Plan Summary Plan Summary: I spoke with pt and she is anxious to go home. Her BP was 150/90 after Procardia 30 mg. I ordered another 30 mg to see if that will manage her BP better. I asked her to walk around also. Her mother is in the room and was concerned about her having a stroke. I informed her mother that the main concern was a seizure. She presented with a major headache. I encouraged the pt to return to the hospital if she has a bad headache again, which may be a sign of an impending seizure. She stated understanding. I will re-evaluate her later this afternoon. She will check her BP at home also.
[2019-04-21] MEDS ORDERED: NIFEDIPINE 30 MG TAB.ER.24 PO ONE (14:30)
--- NOTE | 2019-04-21 18:19 | PDOC DISCHARGE SUMMARY ---
Impression - Admit/DC Date/PCP Admission Date/Primary Care Provider: 04/19/19 13:25 KEVEN GALVEZ MD Discharge Date: 04/21/19 - Discharge Diagnosis (1) headache Is this a current diagnosis for this admission?: Yes (2) hypertension Is this a current diagnosis for this admission?: Yes (3) Preeclampsia in period Is this a current diagnosis for this admission?: Yes - Additional Information Discharge Diet: Regular Discharge Activity: Slowly Increase Activity Referrals: KEVEN GALVEZ MD [Primary Care Provider] - Follow up as needed Home Medications: No Home Medications 04/19/19 History of Present Illiness History of Present Illness: YOGESH DAVIS is a 18 year old G1, P1 presented to the emergency department complaining of a headache unrelieved, . She is status post normal spontaneous vaginal delivery. Hospital Course Hospital Course: Patient was placed on magnesium sulfate for 24 hours and diagnosed with preeclampsia. Her blood pressures were elevated and the patient was placed on Lasix and Procardia 30 mg every morning. The magnesium sulfate was discontinued after 24 hours and the patient was sent to the floor. Patient is ambulating voiding without difficulty. Patient stated that her lochia is decreasing. She is breast-feeding which is going well. However, her blood pressure remained somewhat elevated, therefore her Procardia was increased to 60 mg daily. This patient is very anxious to be discharged. She has no c omplaints of headaches, visual changes or right upper quadrant tenderness. Physical Exam - Physical Exam Vital Signs: Temp Pulse Resp BP Pulse Ox 98.6 F 87 18 141/91 H 99 04/21/19 15:14 04/21/19 15:14 04/21/19 15:14 04/21/19 16:32 04/21/19 15:14 Intake & Output 04/20/19 04/21/19 04/22/19 06:59 06:59 06:59 Intake Total 1476 1500 Output Total 3600 1200 Balance 1476 -2100 -1200 Weight 99.6 kg 98 kg General appearance: PRESENT: no acute distress Respiratory exam: PRESENT: clear to auscultation teresa Cardiovascular exam: PRESENT: RRR GI/Abdominal exam: PRESENT: normal bowel sounds, soft Musculoskeletal exam: ABSENT: ambulatory, deformity, dislocation, full ROM, normal inspection, tenderness, other Results Laboratory Results: WBC 8.4 10^3/uL (4.0-10.5) 04/19/19 12:30 RBC 3.81 10^6/uL (3.72-5.28) 04/19/19 12:30 Hgb 11.3 g/dL (12.0-15.5) L 04/19/19 12:30 Hct 32.8 % (36.0-47.0) L 04/19/19 12:30 MCV 86 fl (80-97) 04/19/19 12:30 MCH 29.6 pg (27.0-33.4) 04/19/19 12:30 MCHC 34.5 g/dL (32.0-36.0) 04/19/19 12:30 RDW 13.2 % (11.5-14.0) 04/19/19 12:30 Plt Count 292 10^3/uL (150-450) 04/19/19 12:30 Lymph % (Auto) 17.9 % (13-45) 04/19/19 12:30 Hayes % (Auto) 5.7 % (3-13) 04/19/19 12:30 Eos % (Auto) 4.6 % (0-6) 04/19/19 12:30 Baso % (Auto) 0.8 % (0-2) 04/19/19 12:30 Absolute Neuts (auto) 6.0 10^3/uL (1.7-8.2) 04/19/19 12:30 Absolute Lymphs (auto) 1.5 10^3/uL (0.5-4.7) 04/19/19 12:30 Absolute Monos (auto) 0.5 10^3/uL (0.1-1.4) 04/19/19 12:30 Absolute Eos (auto) 0.4 10^3/uL (0.0-0.6) 04/19/19 12:30 Absolute Basos (auto) 0.1 10^3/uL (0.0-0.2) 04/19/19 12:30 Seg Neutrophils % 71.0 % (42-78) 04/19/19 12:30 PT 12.2 SEC (11.4-15.4) 04/19/19 12:30 INR 0.91 04/19/19 12:30 APTT 31.4 SEC (23.5-35.8) 04/19/19 12:30 Fibrinogen 557 mg/dL (209-497) H 04/19/19 12:30 D-Dimer 1.91 ug/mL (0.00-0.50) H 04/19/19 12:30 Sodium 136.5 mmol/L (137-145) L 04/19/19 12:30 Potassium 5.0 mmol/L (3.6-5.0) 04/19/19 12:30 Chloride 102 mmol/L (98-107) 04/19/19 12:30 Carbon Dioxide 25 mmol/L (22-30) 04/19/19 12:30 Anion Gap 10 (5-19) 04/19/19 12:30 BUN 7 mg/dL (7-20) 04/19/19 12:30 Creatinine 0.54 mg/dL (0.52-1.25) 04/19/19 12:30 Est GFR ( Amer) > 60 (>60) 04/19/19 12:30 Est GFR (MDRD) Non-Af > 60 (>60) 04/19/19 12:30 Glucose 84 mg/dL (75-110) 04/19/19 12:30 Uric Acid 5.8 mg/dL (2.5-6.2) 04/19/19 12:30 Calcium 9.8 mg/dL (8.4-10.2) 04/19/19 12:30 Magnesium 1.8 mg/dL (1.6-2.3) 04/19/19 12:30 Total Bilirubin 0.3 mg/dL (0.2-1.3) 04/19/19 12:30 Direct Bilirubin 0.2 mg/dL (0.0-0.4) 04/19/19 12:30 Neonat Total Bilirubin Not Reportable 04/19/19 12:30 Neonat Direct Bilirubin Not Reportable 04/19/19 12:30 Neonat Indirect Bili Not Reportable 04/19/19 12:30 AST 24 U/L (14-36) 04/19/19 12:30 ALT 15 U/L (<35) 04/19/19 12:30 Alkaline Phosphatase 87 U/L (38-126) 04/19/19 12:30 Lactate Dehydrogenase 232 U/L (120-246) 04/19/19 12:30 Total Protein 6.9 g/dL (6.3-8.2) 04/19/19 12:30 Albumin 3.8 g/dL (3.5-5.0) 04/19/19 12:30 Plan Plan of Treatment: 1. Discharge home 2. Follow-up in the office in 1 week for a blood pressure check 3. Prescription for Procardia 60 mg every morning given 4. Patient instructed to return to the hospital if she developed a headache, unrelieved with Tylenol 5. Patient instructed to keep a blood pressure log Time Spent: Greater than 30 Minutes Stroke Is this a Stroke Patient?: No Acute Heart Failure - Is this a Heart Failure Patient?: No
[2019-04-21 18:34] VITALS: BP 139/93
== END 2019-04-21 18:50 | disposition home or self-care (01) | DRG 776 ==
LOC: ER 12:10 → EH 13:25 → LR 14:38 → 2S 04-20 14:35
PROVIDERS: ADMIT Student in an Organized Health Care Education/Training Program; ATTEND Student in an Organized Health Care Education/Training Program
DX: O14.15 Severe pre-eclampsia, complicating the puerperium (principal); O99.345 Other mental disorders complicating the puerperium; F41.9 Anxiety disorder, unspecified; F32.9 Major depressive disorder, single episode, unspecified; Z86.19 Personal history of other infectious and parasitic diseases; Z88.0 Allergy status to penicillin; Z87.891 Personal history of nicotine dependence
CPT/HCPCS: 36415; 80053; 83615; 83735; 84550; 85025; 85379; 85384; 85610; 85730; 90686; 94760; 99284; J0360; J3475; J3490; J7120